=== PATIENT | male | born 1985 | race Caucasian/White ===

== ENCOUNTER 2022-05-19 16:00 | Outpatient (RCR) | payer BC, SELFPAY ==
--- NOTE | 2022-04-29 08:20 | HP.PTEVAL ---
Patient's Visit Information EVY KIRKLAND is a 36 year old M referred to Physical Therapy by Dr. Yue Cash DPM with a diagnosis of Bilateral Plantar Fasciitis, Left Achilles Tendonitis. Date of Evaluation: 04/28/22 Physical Therapist: Danae Massey DPT - Visit Plan Frequency: 2x /Week Duration: 4 Weeks Plan: Focus on LE flexibility and strength- eccentrics-manual- modality of US and dry needling PRN. HEP Given IE: Gastroc Stretch with Towel, Soleus Stretch with Towel, Step Stretch, Bilateral Eccentric Heel Raise - Subjective Patient reports Achilles tendonitis for left 2.5 months and right for about 2 weeks. Foot injury in October- snow removal- turned his foot- did not seek treatment was doing fine after about 3 weeks. 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 Before it was a quick sharp pain and went away and then it started being constant- better when doing stretches and such at home. Dr. Nixon gave him soft inserts- initially hated them- told him to lay low- ice and stretch. Then saw Dr. Britton and she gave him stretches, night splint (does wear it), another pair of more rigid inserts, heel lift for the left- light duty at work. He feels that he is 50% to complete recovery. He is currently on his second dose of prednisone- the first time it did not help but he does feel that its helping the right foot. Pain is located on the left along the back of the achilles down around the bottom of the heel. No pain radiates into the bottom of the foot or calf. Right foot: in the arch- does not radiate. Left: Worst: 04/25 Agg: walking, barefoot walking, steeper sarkar, starting or stopping quickly. Right: Worst: 12/24 Left: Best: 12/24 Right: Best: 10/26. Reports that its stiff when it overdoes things and then its really painful and pulling. Shoes- Work boot is a hiking boot. He does not put his inserts in his tennis shoes. He has chosen not to do custom orthotics. 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 No knee/hip or back injuries in his history. Sleep: disturbed- thinks about it a lot. Very active in and out of work. Had an x-ray initially but no MRI. Does have N/T with twitches throughout. PMHx/Meds: see scanned into chart from MD - Objective Posture: FH, RS- can correct with verbal cues. Gait: no deviation noted with shoes. Does have mild pes planus. Observation: pes planus bilateral- moderate valgus at the heel. HR/TR: able with discomfort. SLS: Left: 10 with increased pain, Right: 15 no pain. Stairs: asc/desc 8 recip with no HR- poor control with descent. Palpation: Left: tender along distal achilles and plantar surface of the foot, Right: plantar surface of the foot. ROM: Right: WFL in all planes Left: DF: 5 degrees from neutral, PF: 60 degrees, Inver: 30 degrees Ever: 20 degrees- discomfort with DF testing. Flex: Gastroc: severe, Soleus: severe, Hamstring: severe. Strength: Ankle: 4+/5 throughout, Knee: 5/5, Hip: 4+/5 throughout, Core: fair minus - Balance/Special Test Scores Lower Extremity Functional Score: 46 - Goals Goal 1:: Patient will be I with HEP and progression Goal Time Frame: 4-6 Weeks Goal 2:: Patient will SLS for 30 sec without LOB Goal Time Frame: 4-6 Weeks Goal 3:: Patient will demo 10 degrees of DF on the left Goal Time Frame: 4-6 Weeks Goal 4:: Patient will report 80% improvement Goal Time Frame: 4-6 Weeks - Rehabilitation Potential Physical Therapy Diagnosis: Patient presents with hypomobility-he has decreased LE and core strength/stabilization, ROM, Flex and muscular endurance leading to increased pain Rehabilitation Potential: Good - Anticipated Interventions Patient/Client Instruction: Educate patient on: Benefits of Fitness Program Therapeutic Exercise to Include: Strength training, Endurance training, Balance training, Coordination, Agility training, Body mechanics, Postural training, Flexibilty training, Gait and locomotor training, Neuromotor development, Dynamic Lumbar Stabilization, Scapular Strength/Stabilization For the Purpose of:: To improve muscle performance and motor function Manual Therapy Techniques to Include: Mobilization, Functional dry needling, Soft tissue mobilization For the Purpose of:: To improve nutrient delivery to tissue TENS: Yes Thermo therapy (hot pack): Yes Ultrasound (thermal/non thermal): Yes Thank you for the opportunity to evaluate your patient. For Medicare and Medicare HMO plans, please review the plan of care and approve it. It will need to be FAXED BACK to us at [phone] for Medicare purposes. For Medicare only, by signing this I certify the plan of care. Please let me know if there are questions or concerns regarding this plan of care. Physician Signature: Date:
--- NOTE | 2022-09-16 06:59 | HP.PT.NRP ---
EVY KIRKLAND was seen in my office for initial evaluation on 04/28/22. The following Plan of Care was established for this patient: Initial Frequency: 2x /Week Initial Duration: 4 Weeks Patient/Client Instruction: Educate patient on: Benefits of Fitness Program Therapeutic Exercise to Include: Strength training, Endurance training, Balance training, Coordination, Agility training, Body mechanics, Postural training, Flexibilty training, Gait and locomotor training, Neuromotor development, Dynamic Lumbar Stabilization, Scapular Strength/Stabilization For the Purpose of:: To improve muscle performance and motor function Manual Therapy Techniques to Include: Mobilization, Functional dry needling, Soft tissue mobilization For the Purpose of:: To improve nutrient delivery to tissue TENS: Yes Thermo therapy (hot pack): Yes Ultrasound (thermal/non thermal): Yes This patient was last seen in our office . Pertinent comments regarding their Physical therapy will appear below: Patient has not attended physical therapy in over 30 days- appropriate to be discharged and return to the MD as needed. At this point I will be discontinuing this patient from physical therapy. I would be happy to see this patient again in the future if found appropriate by the physician. Thank you! Danae Massey, BAKARI Balance/Gait/Functional tests - Balance/Special Test Scores Lower Extremity Functional Score: 46
== END 2022-05-19 19:00 | disposition home or self-care (01) ==
LOC: PT 16:00
PROVIDERS: Referring Provider Podiatrist; Visit Provider Podiatrist
DX: M76.62 Achilles tendinitis, left leg (principal); M72.2 Plantar fascial fibromatosis
CPT/HCPCS: 97035; 97110; 97140; 97162

== ENCOUNTER → 2022-05-31 | Outpatient (CLI) | payer BC, SELFPAY ==
--- NOTE | 2022-05-31 08:29 | NEURO ---
NCS and/or EMG Patient Report Ordering Doctor: Yue Cash DATE OF SERVICE: 05/31/22 Indication: Bilateral foot pain (left greater than right). Approximately 3 months of paresthesia, cramping and neuropathic pain. Findings: Nerve conduction studies were performed in the right and left lower extremities. The right peroneal motor study recording the extensor digitorum brevis showed a normal amplitude, normal distal latency and normal conduction velocity. No conduction block or focal slowing was present across the fibular neck. The right tibial motor study recording the abductor hallucis brevis showed a normal amplitude, normal distal latency and normal conduction velocity. Right sural sensory response showed a normal amplitude and conduction velocity. Right superficial peroneal sensory response showed a normal amplitude and conduction velocity. Right medial plantar response showed a normal amplitude and conduction velocity. The left peroneal motor study recording the extensor digitorum brevis showed a normal amplitude, normal distal latency and normal conduction velocity. No conduction block or focal slowing was present across the fibular neck. The left tibial motor study recording the abductor hallucis brevis showed a normal amplitude, normal distal latency and normal conduction velocity. Left sural sensory response showed a normal amplitude and conduction velocity. Left superficial peroneal sensory response showed a normal amplitude and conduction velocity. Left medial plantar response showed a normal amplitude and conduction velocity. Needle EMG of the left lower extremity muscles was performed. No denervation was present in any muscle. Activation in the abductor hallucis was fair secondary to discomfort. Motor unit morphology, activation, and recruitment patterns were normal in the assessed muscles. Impression: This is a normal study. There is no electrophysiologic evidence of peripheral neuropathy in the bilateral lower extremities. Please note: routine nerve conduction studies and needle EMG assess the larger, myelinated motor and sensory fibers. Thus, routine electrodiagnostic studies may be insensitive in detecting a peripheral neuropathy restricted to small fibers alone (i.e., pain, temperature and autonomic fibers). However, most peripheral neuropathies with predominantly small fiber large dysfunction will also involve large fibers to a lesser extent, and will demonstrate abnormalities on electrodiagnostic studies. Thus, clinical correlation is required in the interpretation of this negative electrodiagnostic study if an isolated small fiber neuropathy is considered. Bishnu Blackwell D.O. Multi Select Codes Neurology Neurology Interp Codes: 36146-66 Musc test done w/n test comp (interp) and 26613-12 Nrv cndj test 9-10 studies (interp)
== END | disposition home or self-care (01) ==
LOC: PSN 06:53
PROVIDERS: PCP Family Medicine; Referring Provider Podiatrist; Visit Provider Podiatrist
DX: M54.17 Radiculopathy, lumbosacral region (principal); G57.52 Tarsal tunnel syndrome, left lower limb; G57.51 Tarsal tunnel syndrome, right lower limb
CPT/HCPCS: 95886; 95912